=== PATIENT | male | born 1980 | race Caucasian/White ===

== ENCOUNTER 2024-10-21 07:58 | Emergency (ER) | payer BC, SELFPAY ==
[2024-10-21 07:58] VITALS: BP 165/99; PULSE 62; RESP 14; TEMP 37.2; O2SAT 100; BMI 29.4
--- NOTE | 2024-10-21 08:23 | EDS_ITS ---
HPI History of Present Illness Chief Complaint: Dental Detail of Chief Complaint: Dental pain Informant: patient Narrative Narrative: Patient presents with dental pain initially started 3 days ago the lower jaw he had some swelling there. He was seen at urgent care and started on penicillin. Patient states the lower dental pain on the left side improved but woke up this morning with left-sided upper dental pain and swelling to his face. He denies fevers or chills. Patient states he has poor dentition and does not see a dentist. He is a smoker. PFSH PFSH Home Medications ?Medication ?Instructions ?Recorded ?Last Taken ?Type buprenorphine-naloxone sublingual 10/21/24 Unknown History clindamycin HCl 300 mg capsule 300 mg PO Q6H #40 CAPSULES 10/21/24 Unknown Rx (Cleocin HCl) ibuprofen 800 mg tablet 800 mg PO TID PRN pain #20 tabs 10/21/24 Unknown Rx penicillin V potassium .ROUTE 10/21/24 Unknown History Allergy/AdvReac Type Severity Reaction Status Date / Time cefazolin (From [facility]) Allergy Anaphylaxis Verified 10/21/24 07:59 Social History Smoking Status: Unknown if ever smoked ROS ROS ED Review of Systems ROS Unobtainable: other Constitutional Constitutional ED: Reports lethargy; Denies chills, fever(s), sweats or weight loss Eyes Eyes: Denies blurry vision, change in vision or diplopia ENT ENT ED: Reports other Details: Left upper dental pain and facial swelling ; Denies rhinorrhea or sore throat Cardiovascular Cardiovascular: Denies chest pain, orthopnea or racing heartbeat Respiratory/Chest Respiratory/Chest: Denies cough, dyspnea, dyspnea on exertion, orthopnea or sputum Gastrointestinal Gastrointestinal: Denies abdominal pain, diarrhea, nausea or vomiting Genitourinary Genitourinary ED: Denies dysuria, hematuria or urinary frequency Musculoskeletal Musculoskeletal: Denies arthralgias, back pain, myalgias or neck pain Integumentary Denies abscess, Abrasions or rash Neurologic Neurologic: Denies headache(s) or weakness Psychiatric Psychiatric: Denies anxiety, depression or suicidal thoughts Endocrine Endocrinology: Denies polydipsia, polyphagia or polyuria Hematologic/Lymphatic Hematologic/Lymphatic: Denies easy bleeding, easy bruising or lymphadenopathy Allergic/Immunologic Allergic/Immunologic ED: Denies mouth swelling, tongue swelling or urticaria EXAM Physical Exam Const Vital Signs: 10/21/24 07:58 Temperature 99 F Temperature Source Temporal Pulse Rate 62 Respiratory Rate 14 Blood Pressure 165/99 H Blood Pressure Mean 121 Pulse Ox 100 Positive well nourished and well developed General Appearance ED: well developed and NAD HEENT Reports TM's clear and moist mucous membranes HEENT Narrative: Patient with some left upper facial swelling. Patient has multiple broken and carried teeth with very poor dentition. Does have some slight gingival erythema over the left upper gingiva adjacent to teeth numbers 10 and 11. No gingival fluctuance or definite abscess noted. normocephalic and atraumatic; Negative for trauma or tenderness Tympanic Membrane ED: Yes TM's clear Eyes PERRL and EOMs intact bilaterally General Eye ED: Negative for pale conjunctiva or scleral icterus Neck no lymphadenopathy, supple and no JVD General: Negative for tenderness Chest Wall inspection of chest normal and palpation of chest normal Chest: Negative for tenderness Resp normal respiratory effort and clear to auscultation bilaterally Effort and Inspection: Negative for respiratory distress or pain with movement Auscultation: Negative for rhonchi, wheezes or diminished lung sounds Cardio regular rate, regular rhythm, S1 normal heart sound, S2 normal heart sound and no murmurs Peripheral Pulses: pulses 2+ throughout GI normal to inspection, nondistended, normoactive bowel sounds, soft to palpation, non-tender, non-distended and no masses Back/Spine no CVA tenderness and no thoracic nor lumbar tenderness Extremity normal to inspection General Extremety ED: Negative for edema General Extremity: Negative for edema Neuro oriented x3, CN's II-XII intact bilaterally, no sensory deficits noted and gait normal Sensorium / Orientation: awake, alert, oriented to person, oriented to place and oriented to time Motor Exam: strength 5/5 throughout and strength abnormal Psych mental status grossly normal Skin no rashes or lesions noted and no wounds MDM MDM MDM Narrative Medical decision making narrative: Patient presents with poor dentition and facial swelling with tenderness to the left upper gingiva and broken carried teeth numbers 10 and 11. No discrete abscess that is amenable to I&D. Will start patient on clindamycin. Will give 800 mg ibuprofen as he has had issues with narcotics in the past and is currently on Suboxone. Will refer to dentist for follow-up. Advised to return if fever, facial redness, or increased swelling. Discharge Plan Triage Chief Complaint: Dental ED Provider: Dav Johnson Dx/Rx/DC Orders Clinical Impression: Pain, dental, Dental abscess Instructions: ED Abscess Antibiotic Treatment Only, ED Dental Pain Prescriptions: New clindamycin HCl [Cleocin HCl] 300 mg capsule 300 mg PO Q6H Qty: 40 0RF ibuprofen 800 mg tablet 800 mg PO TID PRN (Reason: pain) Qty: 20 0RF No Action penicillin V potassium .ROUTE buprenorphine-naloxone [Suboxone] sublingual Primary Care Provider: Care Physician,No Primary Referrals: Care Physician,No Primary [Primary Care Provider] - Activity Restrictions/Additional Instructions: See a dentist at earliest possible time. Print Language: [place] Disposition Disposition: Home, Self Care
[2024-10-21] MEDS: Ibuprofen 400 MG Tablet 800 MG PO (08:32)
[2024-10-21] MEDS: Clindamycin HCl 150 MG Capsule 300 MG PO (08:33)
== END 2024-10-21 08:42 | disposition home or self-care (01) ==
PROVIDERS: Emergency Provider Emergency Medicine; Visit Provider Emergency Medicine
DX: K04.7 Periapical abscess without sinus (principal); F17.200 Nicotine dependence, unspecified, uncomplicated
CPT/HCPCS: 99283